=== PATIENT | female | born 1935 | race Caucasian/White ===

== ENCOUNTER 2017-10-22 14:03 | Emergency (ER) | payer MEDICARE, OTHER ==
[~2017-10-22] VITALS: Ht 157.5 cm; Wt 73.5 kg
[~2017-10-22 14:03] MED LIST: ALBU90OI61 INH; ASPI81CH; ASPI81CH PO; CALCIUM PO; CITRACAL; DILT120; DILT120 PO; ESCI10; ESCI10 PO; FISH1000; FISH1000 PO; FURO20 PO; GEMF600; GEMF600 PO; IRON PO; LEVSOD100; LEVSOD100 PO; LOSA50 PO; MELA3 PO; MULVITMIND PO; NAPR220; Norco 5-325 Ta1 EACH PO; OMEP20ER; POTA10T PO; Prednisone20 MG PO; VENLAFAXINE HC150 MG PO; VITAMIN D PO
[2017-10-22 16:43] LABS: BASOPHILS PERCENT AUTO 0 % (0-2); EOSINOPHILS PERCENT AUTO 0 % (0-6); Hematocrit 41.9 % (33.0-51.0); Hemoglobin 13.8 g/dL (11.5-16.0); IMMATURE GRAN ABSOLUTE AUTO 0.03 K/mm3 (0.00-0.10); IMMATURE GRAN PERCENT AUTO 0 % (0-1); LYMPHOCYTES ABSOLUTE AUTO 1.38 K/mm3 (0.84-5.20); LYMPHOCYTES PERCENT AUTO 11 % (21-46); MONOCYTES ABSOLUTE AUTO 0.82 K/mm3 (0.16-1.47); MONOCYTES PERCENT AUTO 6 % (4-13); Mean Corpuscular HGB 27.1 pg (26.0-34.0); Mean Corpuscular HGB Conc 32.9 g/dL (31.5-36.5); Mean Corpuscular Volume 82 fL (80-100); Mean Platelet Volume 10.6 fL (9.1-12.4); NEUTROPHILS ABSOLUTE AUTO 10.88 K/mm3 (1.96-9.15); NEUTROPHILS PERCENT AUTO 83 % (41-73); Platelet Count 302 K/mm3 (150-400); RDW Coefficient Variation 14.9 % (11.7-14.2); RDW Standard Deviation 45.3 fL (35.1-46.3); Red Blood Cell Count 5.09 M/mm3 (3.80-5.20); White Blood Cell Count 13.11 K/mm3 (4.00-11.30)
[2017-10-22 16:44] LABS: Albumin, Blood 3.6 g/dL (3.4-5.0); Bilirubin, Total 0.9 mg/dL (0.1-1.0); Calcium, Blood 9.4 mg/dL (8.5-10.1); Creatinine, Blood 1.22 mg/dL (0.40-1.00); Globulin, Blood 3.6 g/dL (2.2-4.0); Potassium, Blood 3.6 mmol/L (3.5-5.5); Total Protein, Blood 7.2 g/dL (6.4-8.2)
[2018-03-29] MEDS ORDERED: Norco 5-325 Ta1 EACH PO (00:07)
== END 2017-10-22 16:57 | disposition home or self-care (01) ==
LOC: ER 14:03
PROVIDERS: Psychiatry & Neurology Psychiatry
DX: S90.31XA Contusion of right foot, initial encounter (principal); I10 Essential (primary) hypertension; Z88.2 Allergy status to sulfonamides; Z88.8 Allergy status to other drugs, medicaments and biological substances; Z91.09 Other allergy status, other than to drugs and biological substances; Z79.82 Long term (current) use of aspirin; Z86.73 Personal history of transient ischemic attack (TIA), and cerebral infarction without residual deficits; Z79.899 Other long term (current) drug therapy; Z90.710 Acquired absence of both cervix and uterus; X58.XXXA Exposure to other specified factors, initial encounter
CPT/HCPCS: 36415; 73610; 80053; 85025; 93971; 99284

== ENCOUNTER 2019-10-22 07:34 | Day surgery (SDC) | payer MEDICARE, OTHER ==
[~2019-10-22] VITALS: Ht 160 cm; Wt 165.6 kg
--- NOTE | 2019-10-22 09:17 | NUR ---
10/22/19 0917 Richelle Melton O2 UP TO 10L/MIN VIA POM MASK FOR DESAT DURING UPPER ENDOSCOPY.
== END 2019-10-22 10:57 | disposition home or self-care (01) ==
LOC: ORSCSDS 07:34
PROVIDERS: Internal Medicine Gastroenterology
PROC: 0DBH8ZX Excision of Cecum, Via Natural or Artificial Opening Endoscopic, Diagnostic (ICD-10-PCS; principal; 2019-10-22 09:00)
PROC: 0DB58ZX Excision of Esophagus, Via Natural or Artificial Opening Endoscopic, Diagnostic (ICD-10-PCS; principal; 2019-10-22 09:00)
PROC: 0DBL8ZX Excision of Transverse Colon, Via Natural or Artificial Opening Endoscopic, Diagnostic (ICD-10-PCS; principal; 2019-10-22 09:00)
PROC: 0DBK8ZX Excision of Ascending Colon, Via Natural or Artificial Opening Endoscopic, Diagnostic (ICD-10-PCS; principal; 2019-10-22 09:00)
PROC: 0D757ZZ Dilation of Esophagus, Via Natural or Artificial Opening (ICD-10-PCS; principal; 2019-10-22 09:00)
DX: R19.4 Change in bowel habit (principal); R13.10 Dysphagia, unspecified; Z86.010 Personal history of colon polyps; K21.9 Gastro-esophageal reflux disease without esophagitis; K31.7 Polyp of stomach and duodenum; D12.0 Benign neoplasm of cecum; D12.2 Benign neoplasm of ascending colon; D12.3 Benign neoplasm of transverse colon; K22.2 Esophageal obstruction; K44.9 Diaphragmatic hernia without obstruction or gangrene; K57.30 Diverticulosis of large intestine without perforation or abscess without bleeding; K64.8 Other hemorrhoids; K64.4 Residual hemorrhoidal skin tags; I10 Essential (primary) hypertension; E03.9 Hypothyroidism, unspecified; J45.909 Unspecified asthma, uncomplicated; Z86.73 Personal history of transient ischemic attack (TIA), and cerebral infarction without residual deficits; Z79.899 Other long term (current) drug therapy
CPT/HCPCS: 88305; 88342; C1726; J2405; J2704; J7120

== ENCOUNTER 2021-03-15 21:22 | Emergency (ER) | payer MEDICARE, OTHER ==
[~2021-03-15] VITALS: Ht 157.5 cm; Wt 68.0 kg
[2021-03-16 00:15] LABS: BASOPHILS ABSOLUTE AUTO 0.02 K/mm3 (0.00-0.23); BASOPHILS PERCENT AUTO 0 % (0-2); EOSINOPHILS PERCENT AUTO 0 % (0-6); Hematocrit 46.5 % (33.0-51.0); Hemoglobin 15.3 g/dL (11.5-16.0); IMMATURE GRAN ABSOLUTE AUTO 0.08 K/mm3 (0.00-0.10); IMMATURE GRAN PERCENT AUTO 1 % (0-1); LYMPHOCYTES ABSOLUTE AUTO 1.57 K/mm3 (0.84-5.20); LYMPHOCYTES PERCENT AUTO 11 % (21-46); MONOCYTES ABSOLUTE AUTO 0.95 K/mm3 (0.16-1.47); MONOCYTES PERCENT AUTO 6 % (4-13); Mean Corpuscular HGB Conc 32.9 g/dL (31.5-36.5); Mean Corpuscular Volume 85 fL (80-100); Mean Platelet Volume 10.6 fL (9.1-12.4); NEUTROPHILS PERCENT AUTO 83 % (41-73); Platelet Count 334 K/mm3 (150-400); RDW Coefficient Variation 13.7 % (11.7-14.2); RDW Standard Deviation 42.7 fL (35.1-46.3); Red Blood Cell Count 5.46 M/mm3 (3.80-5.20); White Blood Cell Count 15.02 K/mm3 (4.00-11.30)
[2021-03-16 00:36] LABS: Albumin, Blood 3.8 g/dL (3.4-5.0); Bilirubin, Total 0.4 mg/dL (0.1-1.0); Bun/Creatinine Ratio 30.2 (12.0-20.0); Calcium, Blood 9.6 mg/dL (8.5-10.1); Creatinine, Blood 1.06 mg/dL (0.40-1.00); Globulin, Blood 3.8 g/dL (2.2-4.0); Potassium, Blood 4.4 mmol/L (3.5-5.5); Total Protein, Blood 7.6 g/dL (6.4-8.2)
[2021-03-16] MEDS ORDERED: IBUP600 PO (02:20)
[2021-03-16] MEDS ORDERED: LIDO700A20 TOP (02:20)
[2021-03-16] MEDS ORDERED: ACETAMINOPHEN500 MG PO (02:20)
== END 2021-03-16 06:00 | disposition home or self-care (01) ==
LOC: ER 21:22
PROVIDERS: Emergency Medicine
DX: S22.32XA Fracture of one rib, left side, initial encounter for closed fracture (principal); I10 Essential (primary) hypertension; Z88.2 Allergy status to sulfonamides; Z91.09 Other allergy status, other than to drugs and biological substances; Z88.8 Allergy status to other drugs, medicaments and biological substances; Z79.899 Other long term (current) drug therapy; Z86.73 Personal history of transient ischemic attack (TIA), and cerebral infarction without residual deficits; W01.198A Fall on same level from slipping, tripping and stumbling with subsequent striking against other object, initial encounter
CPT/HCPCS: 36415; 71101; 74177; 80053; 83690; 85025; 96374; 99284-25; J1200; J7512; Q9967

== ENCOUNTER 2021-05-17 16:08 | Observation (INO) | payer MEDICARE, OTHER ==
[~2021-05-17] VITALS: Ht 167.6 cm; Wt 67.8 kg
[~2021-05-17 16:08] MED LIST changes: +ACETAMINOPHEN500 MG PO; +IBUP600 PO; +LIDO700A20 TOP
[2021-05-17 17:02] LABS: BASOPHILS ABSOLUTE AUTO 0.03 K/mm3 (0.00-0.23); BASOPHILS PERCENT AUTO 0 % (0-2); EOSINOPHILS ABSOLUTE AUTO 0.01 K/mm3 (0.00-0.68); EOSINOPHILS PERCENT AUTO 0 % (0-6); Hematocrit 42.5 % (33.0-51.0); Hemoglobin 14.4 g/dL (11.5-16.0); IMMATURE GRAN ABSOLUTE AUTO 0.12 K/mm3 (0.00-0.10); IMMATURE GRAN PERCENT AUTO 1 % (0-1); LYMPHOCYTES ABSOLUTE AUTO 1.66 K/mm3 (0.84-5.20); LYMPHOCYTES PERCENT AUTO 10 % (21-46); MONOCYTES ABSOLUTE AUTO 1.55 K/mm3 (0.16-1.47); MONOCYTES PERCENT AUTO 9 % (4-13); Mean Corpuscular HGB 28.3 pg (26.0-34.0); Mean Corpuscular HGB Conc 33.9 g/dL (31.5-36.5); Mean Corpuscular Volume 84 fL (80-100); NEUTROPHILS ABSOLUTE AUTO 13.82 K/mm3 (1.96-9.15); NEUTROPHILS PERCENT AUTO 80 % (41-73); Platelet Count 378 K/mm3 (150-400); RDW Coefficient Variation 14.4 % (11.7-14.2); RDW Standard Deviation 43.8 fL (35.1-46.3); Red Blood Cell Count 5.09 M/mm3 (3.80-5.20); White Blood Cell Count 17.19 K/mm3 (4.00-11.30)
[2021-05-17] MEDS ORDERED: DILT30 PO (17:12)
[2021-05-17] MEDS ORDERED: VENL150ER PO (17:12)
[2021-05-17] MEDS ORDERED: FURO20 PO (17:12)
[2021-05-17] MEDS ORDERED: LEVSOD100 PO (17:13)
[2021-05-17] MEDS ORDERED: LOSA50 PO (17:14)
[2021-05-17 17:18] LABS: International Normalized Ratio 0.97; Prothrombin Time Results 10.5 Sec (9.7-11.5)
[2021-05-17 17:25] LABS: Albumin, Blood 3.8 g/dL (3.4-5.0); Bilirubin, Total 0.8 mg/dL (0.1-1.0); Bun/Creatinine Ratio 23.2 (12.0-20.0); Calcium, Blood 9.4 mg/dL (8.5-10.1); Creatinine, Blood 0.99 mg/dL (0.40-1.00); Globulin, Blood 3.8 g/dL (2.2-4.0); Potassium, Blood 4.2 mmol/L (3.5-5.5); Total Protein, Blood 7.6 g/dL (6.4-8.2)
[2021-05-18] MEDS ORDERED: ASPIR 8181 M1 PO (00:47)
[2021-05-18] MEDS ORDERED: FURO20 PO (00:48)
[2021-05-18] MEDS ORDERED: KLOR-CON 1010 ME1 PO (00:49)
[2021-05-18] MEDS ORDERED: ALBU90OI INH (00:50)
--- NOTE | 2021-05-18 01:00 | NUR ---
PT ADMITTED TO ICU 4 PER XIMENA FROM ER. NICARDIPINE 5MG/HR, SEE FLOWSHEET. PT IS ALERT & ORIENTED, MAEW, DENIES DISCOMFORT AND ABLE TO PROVIDE HISTORY. PT IS ON RA. UP TO BSC TO VOID W ASSIST. PT UNDERSTANDS TO CALL FOR ASSIST, NOT TO GET OOB. PT STATES THAT FOR THE LAST COUPLE MONTHS SHE HAS NOTICED THAT SHE HAS MOMENTS WHERE SHE FORGETS WHAT SHE WAS INTENDING TO DO, AND THIS IS NOT LIKE HER. PT STATES THAT SHE USES A TRIPOD CANE TO AMBULATE AT HOME.
[2021-05-18 03:40] LABS: BASOPHILS ABSOLUTE AUTO 0.02 K/mm3 (0.00-0.23); BASOPHILS PERCENT AUTO 0 % (0-2); EOSINOPHILS PERCENT AUTO 0 % (0-6); Hemoglobin 14.2 g/dL (11.5-16.0); IMMATURE GRAN ABSOLUTE AUTO 0.12 K/mm3 (0.00-0.10); IMMATURE GRAN PERCENT AUTO 1 % (0-1); LYMPHOCYTES ABSOLUTE AUTO 0.96 K/mm3 (0.84-5.20); LYMPHOCYTES PERCENT AUTO 6 % (21-46); MONOCYTES ABSOLUTE AUTO 0.36 K/mm3 (0.16-1.47); MONOCYTES PERCENT AUTO 2 % (4-13); Mean Corpuscular HGB 28.4 pg (26.0-34.0); Mean Corpuscular HGB Conc 33.8 g/dL (31.5-36.5); Mean Corpuscular Volume 84 fL (80-100); Mean Platelet Volume 10.7 fL (9.1-12.4); NEUTROPHILS PERCENT AUTO 91 % (41-73); Platelet Count 328 K/mm3 (150-400); RDW Coefficient Variation 14.3 % (11.7-14.2); RDW Standard Deviation 43.6 fL (35.1-46.3); White Blood Cell Count 15.76 K/mm3 (4.00-11.30)
[2021-05-18 03:59] LABS: Alanine Aminotransfer (ALT/SGP 22 U/L (12-78); Albumin, Blood 3.2 g/dL (3.4-5.0); Alk Phos 73 U/L (50-136); Anion Gap 7 mmol/L (6-16); Aspartate Aminotrans (AST/SGOT 22 U/L (12-37); Blood Urea Nitrogen 20 mg/dL (8-24); Bun/Creatinine Ratio 24.1 (12.0-20.0); CO2, Blood 24 mmol/L (21-32); Calcium, Blood 8.6 mg/dL (8.5-10.1); Chloride, Blood 104 mmol/L (98-108); Creatinine, Blood 0.83 mg/dL (0.40-1.00); Globulin, Blood 3.2 g/dL (2.2-4.0); Glomerular Filtration Rate >60 (60-); Glucose, Blood 183 mg/dL (70-99); Potassium, Blood 4.2 mmol/L (3.5-5.5); Sodium, Blood 135 mmol/L (136-145); Total Protein, Blood 6.4 g/dL (6.4-8.2)
--- NOTE | 2021-05-18 06:00 | NUR ---
PT STATES SHE SLEPT WELL. NICARDIPINE HAS BEEN OFF SINCE 114. VSS, NO CHANGE IN NEURO STATUS, CONT ON RA. CONT NSR.
--- NOTE | 2021-05-18 12:39 | NUR ---
REASSESSMENT PT HAS BEEN UP IN THE CHAIR THROUGHOUT THE MORNING. HER RA IS A LITTLE WEAKER THAN THE L, OTHERWISE NO DEFICITS NOTED. SR. BP REMAINS HIGH, SBP ANYWHERE FROM 130-180. PT WENT TO CT VIA WC WITH RN AND BACK AND TOELRATED IT WELL. PT ATE BREAKFAST WITHOUT ANY PROBLEMS, BUT WHILE SHE WAS EATING LUNCH SHE ALL OF A SUDDEN RETCHED AND VOMITED UP WHAT SHE ATE FOR BREAKFAST. PT DENIES ANY NAUSEA ASSOCIATED WITH IT. STATES IT "CAME OUT OF THE BLUE." ASSISTED PT WITH GETTING CLEANED UP AND SHE IS RESTING NOW. NO OTHER CONCERNS AT THIS TIME. CONTINUING TO MONITOR.
--- NOTE | 2021-05-18 13:35 | NUR ---
DR. MORRIS NOTIFIED OF PT'S CT RESULTS BEING BACK AND THAT PRN HYDRALAZINE WAS GIVEN FOR SBP 170S. HE STATED HE WILL TAKE A LOOK AT HER MEDS.
--- NOTE | 2021-05-18 17:00 | NUR ---
SHIFT SUMMARY PT'S SBP HAS RANGED FROMT HE 130-170S TODAY. PRN HYDRALAZINE GIVEN ONCE AND DR. MORRIS INCREASED DILTIAZEM DOSE. PT IS ALERT AND ORIENTED, BUT HAS BRIEF MOMENTS OF CONFUSION WHERE SHE FORGETS WHICH CITY SHE IS IN. THIS MORNING SHE SAYS SHE THOUGHT SHE WAS IN [place] AND THEN THIS EVENING SHE WAS TELLING HER DAUGHTER THAT SHE WAS IN [place]. WHEN CORRECTED AND TOLD SHE IS IN [place] PT JUST STATES "OH, I AM CONFUSED!" OTHER THAN THOSE 2 MOMENTS TODAY PT APPEARS ORIENTED. NO MORE EPISODES OF EMESIS SINCE LUNCH TIME. PT HAD A BM THIS AFTERNOON. PT'S IN THE ROOM VISITING WITH HER. PT TRANSFERRING TO RM [id number]. REPORT GIVEN TO BA CUELLAR.
--- NOTE | 2021-05-18 17:29 | NUR ---
SHIFT SUMMARY: ASSUMED CARE OF PATIENT UPON HER ARRIVAL FROM ICU AT 1715. AMBULATED TO BR WITH FWW, GAIT BELT, AND 1 PERSON ASSIST. GAIT IS UNSTEADY, BLE ARE WEAK. A&O X 3, PLEASANT AND COOPERATIVE. DENIES PAIN AT THIS TIME. IS HOPING TO D/C HOME TOMORROW.
--- NOTE | 2021-05-19 03:44 | NUR ---
SHIFT SUMMARY PATIENT HAD NO ACUTE CHANGES OBSERVED. AXOX 3 WITH CONFUSION AT TIMES. N/V AT START OF SHIFT AND RESOLVED QUICKLY. PATIENT REPORTS HAPPENED AFTER SHE HAD SOME FOOD AND HX OF N/V AFTER EATING AT TIMES. ONE ASSIST TO BR WITH UNSTEADY GAIT. PIV REMAINS INTACT. VSS/AFEBRILE. DENIES CHEST PAIN, SOB, AND N/V. TAKES MEDICATION WHOLE WITH WATER. COOPERATIVE WITH CARE. CALL LIGHT IN REACH. BED IN LOWEST POSITION. WILL CONTINUE TO MONITOR UNTIL DAY SHIFT NURSE ASSUMES CARE.
[2021-05-19] MEDS ORDERED: HYDCHL25 PO (12:21)
[2021-05-19] MEDS ORDERED: CITA20 PO (12:21)
--- NOTE | 2021-05-19 12:57 | NUR ---
PATIENT DISCHARGED TODAY AT 12:57. FAMILY CAME IN TO PICK HER UP. CORRESPONDENCE TRANSCRIBER TOOK THE PATIENT OUT TO THE CAR BY WHEELCHAIR.
== END 2021-05-19 12:54 | disposition home health service (06) ==
LOC: ER 16:08 → PCU 16:09 → ICUW 16:09 → ICUE 16:09 → ICUW 20:12 → ICUE 21:50 → MEDS 05-18 17:14 → ENPENDDIS 05-19 11:38 → MEDS 05-19 12:54
PROVIDERS: Emergency Medicine; ADMIT Internal Medicine
DX: S06.6X9A Traumatic subarachnoid hemorrhage with loss of consciousness of unspecified duration, initial encounter (principal); S00.03XA Contusion of scalp, initial encounter; I16.0 Hypertensive urgency; J45.909 Unspecified asthma, uncomplicated; E03.9 Hypothyroidism, unspecified; G93.40 Encephalopathy, unspecified; R27.0 Ataxia, unspecified; I67.89 Other cerebrovascular disease; Z88.5 Allergy status to narcotic agent; Z88.2 Allergy status to sulfonamides; Z88.8 Allergy status to other drugs, medicaments and biological substances; Z88.6 Allergy status to analgesic agent; Z91.041 Radiographic dye allergy status; Z86.73 Personal history of transient ischemic attack (TIA), and cerebral infarction without residual deficits; W19.XXXA Unspecified fall, initial encounter; Z66 Do not resuscitate; Z51.5 Encounter for palliative care
CPT/HCPCS: 36415; 70450; 70496; 80053; 85025; 85610; 85730; 96365; 96366; 96367; 96375; 96376; 99285-25; A9270; G0378; J0360; J2920; J7030; J7050; Q9967

== ENCOUNTER 2021-05-21 14:06 | Inpatient (IN) | payer MEDICARE, OTHER ==
[~2021-05-21] VITALS: Ht 167.6 cm; Wt 71.4 kg
[~2021-05-21 14:06] MED LIST changes: +ALBU90OI INH; +ASPIR 8181 M1 PO; +CITA20 PO; +DILT30 PO; +HYDCHL25 PO; +KLOR-CON 1010 ME1 PO; +VENL150ER PO
[2021-05-21 14:43] LABS: BASOPHILS ABSOLUTE AUTO 0.04 K/mm3 (0.00-0.23); BASOPHILS PERCENT AUTO 0 % (0-2); EOSINOPHILS ABSOLUTE AUTO 0.03 K/mm3 (0.00-0.68); EOSINOPHILS PERCENT AUTO 0 % (0-6); Hematocrit 46.9 % (33.0-51.0); Hemoglobin 15.8 g/dL (11.5-16.0); IMMATURE GRAN ABSOLUTE AUTO 0.18 K/mm3 (0.00-0.10); IMMATURE GRAN PERCENT AUTO 1 % (0-1); LYMPHOCYTES ABSOLUTE AUTO 1.88 K/mm3 (0.84-5.20); LYMPHOCYTES PERCENT AUTO 9 % (21-46); MONOCYTES ABSOLUTE AUTO 1.73 K/mm3 (0.16-1.47); MONOCYTES PERCENT AUTO 9 % (4-13); Mean Corpuscular HGB 28.1 pg (26.0-34.0); Mean Corpuscular HGB Conc 33.7 g/dL (31.5-36.5); Mean Corpuscular Volume 83 fL (80-100); Mean Platelet Volume 10.8 fL (9.1-12.4); NEUTROPHILS ABSOLUTE AUTO 16.53 K/mm3 (1.96-9.15); NEUTROPHILS PERCENT AUTO 81 % (41-73); Platelet Count 491 K/mm3 (150-400); RDW Coefficient Variation 14.3 % (11.7-14.2); RDW Standard Deviation 43.3 fL (35.1-46.3); Red Blood Cell Count 5.63 M/mm3 (3.80-5.20); White Blood Cell Count 20.39 K/mm3 (4.00-11.30)
[2021-05-21 15:13] LABS: Alanine Aminotransfer (ALT/SGP 27 U/L (12-78); Albumin, Blood 3.9 g/dL (3.4-5.0); Alk Phos 126 U/L (50-136); Anion Gap 9 mmol/L (6-16); Aspartate Aminotrans (AST/SGOT 19 U/L (12-37); Bilirubin, Total 0.9 mg/dL (0.1-1.0); Blood Urea Nitrogen 44 mg/dL (8-24); Bun/Creatinine Ratio 32.1 (12.0-20.0); CO2, Blood 25 mmol/L (21-32); Calcium, Blood 9.4 mg/dL (8.5-10.1); Chloride, Blood 98 mmol/L (98-108); Creatinine, Blood 1.37 mg/dL (0.40-1.00); Glomerular Filtration Rate 37 (60-); Glucose, Blood 156 mg/dL (70-99); Potassium, Blood 3.5 mmol/L (3.5-5.5); Sodium, Blood 132 mmol/L (136-145); Total Protein, Blood 7.9 g/dL (6.4-8.2)
[2021-05-21 17:12] LABS: Prothrombin Time Results 10.8 Sec (9.7-11.5)
[2021-05-21 21:24] LABS: CHOL/HDL RATIO 3.2; Cholesterol 217 mg/dL (50-200); HDL Cholesterol 67 mg/dL (>39); LDL/HDL RATIO 1.9; Low Density Lipoprotein Chol 125 mg/dL (0-110); Triglycerides 127 mg/dL (30-160); Very Low Density Lipoprot Chol 25 mg/dL (6-32)
[2021-05-22 04:45] LABS: BASOPHILS ABSOLUTE AUTO 0.02 K/mm3 (0.00-0.23); BASOPHILS PERCENT AUTO 0 % (0-2); EOSINOPHILS PERCENT AUTO 0 % (0-6); Hematocrit 44.4 % (33.0-51.0); Hemoglobin 14.7 g/dL (11.5-16.0); IMMATURE GRAN ABSOLUTE AUTO 0.08 K/mm3 (0.00-0.10); IMMATURE GRAN PERCENT AUTO 1 % (0-1); LYMPHOCYTES ABSOLUTE AUTO 0.81 K/mm3 (0.84-5.20); LYMPHOCYTES PERCENT AUTO 7 % (21-46); MONOCYTES ABSOLUTE AUTO 0.24 K/mm3 (0.16-1.47); MONOCYTES PERCENT AUTO 2 % (4-13); Mean Corpuscular HGB 28.2 pg (26.0-34.0); Mean Corpuscular HGB Conc 33.1 g/dL (31.5-36.5); Mean Corpuscular Volume 85 fL (80-100); NEUTROPHILS ABSOLUTE AUTO 11.32 K/mm3 (1.96-9.15); NEUTROPHILS PERCENT AUTO 91 % (41-73); Platelet Count 340 K/mm3 (150-400); RDW Coefficient Variation 13.7 % (11.7-14.2); RDW Standard Deviation 42.7 fL (35.1-46.3); Red Blood Cell Count 5.21 M/mm3 (3.80-5.20); White Blood Cell Count 12.47 K/mm3 (4.00-11.30)
--- NOTE | 2021-05-22 05:01 | NUR ---
SHIFT SUMMARY PT NEW ED ADMIT THIS EVENING. PT REPORTED WEAKNESS TO LLE. STATED THAT HE LEGS WOULD JUST "GIVE OUT ON HER" IF SHE WERE TO TRY TO STAND ON THEM. PT WAS ABLE TO GET UP TO BSC WITH 1 ASSIST. HOWEVER PER DIRECTOR OF RESEARCH PT WAS STILL SOMEWHAT UNSTEADY. NEURO CHECKS NEGATIVE OTHERWISE. TELEMETRY ON. SR IN THE 70'S PER THICKENER OPERATOR. PT SLEPT MUCH OF THE NIGHT AFTER ADMISSION. HAD AN UNEVENTFUL NIGHT. VITAL SIGNS STABLE. WILL CONTINUE TO MONITOR.
[2021-05-22 05:02] LABS: Bun/Creatinine Ratio 34.9 (12.0-20.0); Calcium, Blood 8.7 mg/dL (8.5-10.1); Creatinine, Blood 1.09 mg/dL (0.40-1.00); Potassium, Blood 3.8 mmol/L (3.5-5.5)
--- NOTE | 2021-05-22 18:10 | NUR ---
NO NEURO DEF NOTED THIS SHIFT. PT HAS EQUAL BI LAT ORACLE DATABASE ADMINISTRATOR. ABLE TO EXPRESS ANY NEEDS. SBA TO BSC. PT IS ALERT AND ORIENTED. NO FACIAL DROOP NOTED. NO ACUTE CHANGES. CALL LIGHT WITHIN REACH, BED IN LOW POSITION, WCTM
--- NOTE | 2021-05-23 03:54 | NUR ---
SUMMARY NO ISSUES NOTED. PT HAS NO NOTED DEFICITS OR FACIAL DROOP. PT SLEPT OFF AND ON T/O SHIFT. PT DENIES CX PAIN OR SOB. CALL LIGHT IN REACH AND BED ALARM ON.
[2021-05-23 04:43] LABS: BASOPHILS ABSOLUTE AUTO 0.04 K/mm3 (0.00-0.23); BASOPHILS PERCENT AUTO 0 % (0-2); EOSINOPHILS PERCENT AUTO 0 % (0-6); Hematocrit 45.4 % (33.0-51.0); Hemoglobin 15.1 g/dL (11.5-16.0); IMMATURE GRAN ABSOLUTE AUTO 0.23 K/mm3 (0.00-0.10); IMMATURE GRAN PERCENT AUTO 1 % (0-1); LYMPHOCYTES ABSOLUTE AUTO 1.32 K/mm3 (0.84-5.20); LYMPHOCYTES PERCENT AUTO 5 % (21-46); MONOCYTES ABSOLUTE AUTO 1.55 K/mm3 (0.16-1.47); MONOCYTES PERCENT AUTO 6 % (4-13); Mean Corpuscular HGB 28.3 pg (26.0-34.0); Mean Corpuscular HGB Conc 33.3 g/dL (31.5-36.5); Mean Corpuscular Volume 85 fL (80-100); Mean Platelet Volume 10.6 fL (9.1-12.4); NEUTROPHILS ABSOLUTE AUTO 21.42 K/mm3 (1.96-9.15); NEUTROPHILS PERCENT AUTO 87 % (41-73); Platelet Count 403 K/mm3 (150-400); RDW Coefficient Variation 13.8 % (11.7-14.2); RDW Standard Deviation 42.5 fL (35.1-46.3); Red Blood Cell Count 5.34 M/mm3 (3.80-5.20); White Blood Cell Count 24.56 K/mm3 (4.00-11.30)
[2021-05-23 05:02] LABS: Bun/Creatinine Ratio 39.8 (12.0-20.0); Calcium, Blood 8.9 mg/dL (8.5-10.1); Creatinine, Blood 1.18 mg/dL (0.40-1.00); Potassium, Blood 3.8 mmol/L (3.5-5.5)
[2021-05-23 09:45] LABS: Source, Urine Clean Catch
[2021-05-23 09:50] LABS: Bilirubin, Urine Neg (Neg); Blood, Urine Neg (Neg); Glucose Qualitative, Urine Neg (Neg); Ketones, Urine Neg (Neg); Leukocyte Esterase, Urine Neg (Neg); Nitrite, Urine Neg (Neg); Protein, Urine 1+ (Neg); Specific Gravity, Urine 1.015 (1.003-1.022); Urobilinogen, Urine NORM (Normal)
[2021-05-23 09:51] LABS: Appearance, Urine Clear (Clear); Color, Urine Yellow (P-Yellow)
[2021-05-23 14:52] LABS: SARS-Cov-2 (COVID-19) PCR, MMC NEGATIVE (NEGATIVE)
[2021-05-23] MEDS ORDERED: ACET325 PO (15:11)
[2021-05-23] MEDS ORDERED: FURO20 PO (15:27)
[2021-05-23] MEDS ORDERED: VENL150ER PO (15:27)
--- NOTE | 2021-05-23 16:06 | NUR ---
1600 PT TO DISCHARGE TO R . THIS NURSE GAVE REPORT TO ANITA COSME. PT HAD IV REMOVED, NO SS OF INFECTION NOTED. PT TO BE TAKEN DOWN BY WC.
== END 2021-05-23 18:27 | DRG 65 ==
LOC: ER 14:06 → MEDS 14:07
PROVIDERS: Internal Medicine; Student in an Organized Health Care Education/Training Program; ADMIT Family Medicine
DX: I63.89 Other cerebral infarction (principal); E87.1 Hypo-osmolality and hyponatremia; N17.9 Acute kidney failure, unspecified; G81.94 Hemiplegia, unspecified affecting left nondominant side; I67.848 Other cerebrovascular vasospasm and vasoconstriction; Z66 Do not resuscitate; Z86.73 Personal history of transient ischemic attack (TIA), and cerebral infarction without residual deficits; D72.829 Elevated white blood cell count, unspecified; Z90.710 Acquired absence of both cervix and uterus; E03.9 Hypothyroidism, unspecified; J45.909 Unspecified asthma, uncomplicated; Z98.890 Other specified postprocedural states; Z88.8 Allergy status to other drugs, medicaments and biological substances; Z88.2 Allergy status to sulfonamides; Z79.899 Other long term (current) drug therapy; N18.30 Chronic kidney disease, stage 3 unspecified; I12.9 Hypertensive chronic kidney disease with stage 1 through stage 4 chronic kidney disease, or unspecified chronic kidney disease; D47.3 Essential (hemorrhagic) thrombocythemia
CPT/HCPCS: 36415; 70450; 70496; 71045; 80048; 80053; 80061; 85025; 85610; 85730; 93005; 93010; 96374; 96375; 97110; 97112; 97162; 97166; 97530; 97535; 99285-25; A9270; G0378; J1200; J2930; Q9967; U0004

== ENCOUNTER 2021-07-20 17:01 | Emergency (ER) | payer MEDICARE, OTHER ==
[~2021-07-20] VITALS: Ht 157.5 cm; Wt 68.0 kg
[~2021-07-20 17:01] MED LIST changes: +ACET325 PO
== END 2021-07-20 18:15 | disposition home or self-care (01) ==
LOC: ER 17:01
DX: S50.02XA Contusion of left elbow, initial encounter (principal); I10 Essential (primary) hypertension; Z88.2 Allergy status to sulfonamides; Z88.8 Allergy status to other drugs, medicaments and biological substances; Z91.048 Other nonmedicinal substance allergy status; Z79.899 Other long term (current) drug therapy; Z86.73 Personal history of transient ischemic attack (TIA), and cerebral infarction without residual deficits; W19.XXXA Unspecified fall, initial encounter
CPT/HCPCS: 73080; 99283-25

== ENCOUNTER 2021-08-12 20:13 | Inpatient (IN) | payer MEDICARE, OTHER ==
[~2021-08-12] VITALS: Ht 157.5 cm; Wt 70.3 kg
[2021-08-12] MEDS ORDERED: VENL150ER PO (20:30)
[2021-08-12] MEDS ORDERED: Aspir 8181 MG PO (20:30)
[2021-08-12] MEDS ORDERED: 1/2 NS 250ml250 ML (20:31)
[2021-08-13 00:20] LABS: Influenza A, PCR NEGATIVE (NEGATIVE); Influenza B, PCR NEGATIVE (NEGATIVE); Resp Syncytial Virus, PCR NEGATIVE (NEGATIVE); SARS-Cov-2 (COVID-19) PCR, MMC NEGATIVE (NEGATIVE)
[2021-08-13 00:38] LABS: BASOPHILS ABSOLUTE AUTO 0.03 K/mm3 (0.00-0.23); BASOPHILS PERCENT AUTO 0 % (0-2); EOSINOPHILS ABSOLUTE AUTO 0.01 K/mm3 (0.00-0.68); EOSINOPHILS PERCENT AUTO 0 % (0-6); Hematocrit 38.9 % (33.0-51.0); IMMATURE GRAN PERCENT AUTO 1 % (0-1); LYMPHOCYTES ABSOLUTE AUTO 1.05 K/mm3 (0.84-5.20); LYMPHOCYTES PERCENT AUTO 7 % (21-46); MONOCYTES ABSOLUTE AUTO 1.07 K/mm3 (0.16-1.47); MONOCYTES PERCENT AUTO 7 % (4-13); Mean Corpuscular HGB 28.4 pg (26.0-34.0); Mean Corpuscular HGB Conc 33.4 g/dL (31.5-36.5); Mean Corpuscular Volume 85 fL (80-100); Mean Platelet Volume 10.9 fL (9.1-12.4); NEUTROPHILS ABSOLUTE AUTO 12.84 K/mm3 (1.96-9.15); NEUTROPHILS PERCENT AUTO 85 % (41-73); Platelet Count 342 K/mm3 (150-400); RDW Coefficient Variation 14.1 % (11.7-14.2); RDW Standard Deviation 43.8 fL (35.1-46.3); Red Blood Cell Count 4.57 M/mm3 (3.80-5.20)
[2021-08-13 00:57] LABS: Albumin, Blood 3.3 g/dL (3.4-5.0); Bilirubin, Total 0.6 mg/dL (0.1-1.0); Bun/Creatinine Ratio 27.6 (12.0-20.0); Calcium, Blood 8.7 mg/dL (8.5-10.1); Creatinine, Blood 0.98 mg/dL (0.40-1.00); Globulin, Blood 3.4 g/dL (2.2-4.0); Potassium, Blood 4.2 mmol/L (3.5-5.5); Total Protein, Blood 6.7 g/dL (6.4-8.2)
--- NOTE | 2021-08-13 06:05 | NUR ---
AAOX4. NO ACUTE DISTRESS NOTED. PATIENT ARRIVED AT THE FLOOR WITH PAIN 6/10. PAIN MEDS WAS GIVEN. LAIRD WAS INSERTED. BLOOD AND SURG PACAKGE WAS SIGHNED BY PATIENT. CALL LIGHT WITHIN REACH. BED AT THE LOWEST SIDE. NO NEEDS VERBALIZED AT THIS TIME
--- NOTE | 2021-08-13 12:22 | NUR ---
PT ARRIVED TO THE FLOOR AT APPROX 1145. A/OX4. VITALS TAKEN. COMPLAINTS OF PAIN WHEN BEING TRANSFERED BUT REPORTS DECREASED PAIN WHILE LAYING STILL. R ARM WRAPPED WITH CARO WRAP AND BRACE. VERY PALE SKIN TONE. 3L O2 SATING AT 95%.
--- NOTE | 2021-08-13 15:42 | NUR ---
POSSESSIONS SON LUIZ STATED THAT HE WAS TAKING ALL PTS JEWLERY AND HER PURSE HOME.
--- NOTE | 2021-08-13 18:05 | NUR ---
SHIFT SUMMARY A/OX4. VITALS STABLE. PAIN CONTROLLED PER EMAR. PT CURRENTLY IN SURGERY.
--- NOTE | 2021-08-14 06:23 | NUR ---
AFTER MIFNIGHT PATIENT GET CONFUSED AND PULLED HER IV OUT WELL HER L HIP WOUND DRESSING BUT SHE IS STILL ALERT ORIENTED X3. PT WAS REORIENTED , A NEW IV ACCESS WAS INSERTED AND NEW DRESSING WAS APPLIED. STILL ON LAIRD. NO ACUTE DISTRESS NOTED AT THIS TIME. CALL LIGHT WITHIN REACH. BED AT THE LOWEST POSITION AND BED IS LOCKED.
--- NOTE | 2021-08-14 17:59 | NUR ---
SHIFT SUMMARY PT POD #1 FOR L HIP REPAIR WITH GAMMA NAILING. [address] [facility] PT WAS CONFUSED THIS MORNING AND NEEDED FREQUENT REORIENTATION, BUT HER MENTATION HAS CLEARED SINCE. SHE IS CURRENTLY A/O X3. SHE WORKED WITH PHYSICAL THERAPY AND WAS ABLE TO GET UP TO THE CHAIR WITH A 1 ASSIST W/FWW/GB. LAIRD CATHETER REMOVED. VSS. WILL REPORT TO ONCOMING RN.
[2021-08-15 03:59] LABS: Hematocrit 30.9 % (33.0-51.0); Hemoglobin 10.3 g/dL (11.5-16.0); Mean Corpuscular HGB 28.5 pg (26.0-34.0); Mean Corpuscular HGB Conc 33.3 g/dL (31.5-36.5); Mean Corpuscular Volume 86 fL (80-100); Mean Platelet Volume 10.8 fL (9.1-12.4); Platelet Count 306 K/mm3 (150-400); RDW Standard Deviation 43.8 fL (35.1-46.3); Red Blood Cell Count 3.61 M/mm3 (3.80-5.20); White Blood Cell Count 13.25 K/mm3 (4.00-11.30)
[2021-08-15 04:18] LABS: Bun/Creatinine Ratio 27.7 (12.0-20.0); Calcium, Blood 8.7 mg/dL (8.5-10.1); Creatinine, Blood 1.59 mg/dL (0.40-1.00); Potassium, Blood 4.1 mmol/L (3.5-5.5)
--- NOTE | 2021-08-15 08:05 | NUR ---
SUMMARY PT AMBULATORY WITH WALKER,GAIT BELT AND SBA.HOWEVER,PT IS WEAK AND SHAKEY. APPEARS DECONDITIONED.
--- NOTE | 2021-08-15 16:03 | NUR ---
SHIFT SUMMARY PT IS POD#2 FROM L GAMMA NAILING. PAIN HAS BEEN MANAGED WITH TYLENOL, SHE REPORTS MINIMAL TO NO INCREASE IN PAIN WITH MOVEMENT. PT IS A 1 PERSON MODERATE ASSIST FOR AMBULATION AND TRANSFERS. PT IS TOLERATING PO, VOIDING WELL. CARE MANAGEMENT CONTACTED REGARDING DISCHARGE PLANNING. VSS. WILL MONITOR UNTIL REPORT TO NOC RN.
--- NOTE | 2021-08-16 04:45 | NUR ---
SHIFT SUMMARY: PT POD#3 FOR A CLOSED REDUCTION+GAMMA NAILING TO LEFT HIP. PT A&OX4 IN BEGINNING OF SHIFT BUT BECAME MORE FORGETFUL DURING NIGHT. PT INCONTINENT TWICE, OTHERWISE 1 ASSIST TO BATHROOM W/FWW+GB. DRESSING CHANGED ONCE THIS SHIFT PT PULLED IT OFF. INCISION SITE APPEARED WNL AND JULIET INTACT. PAIN BEING MANAGED WITH TYLENOL PER EMAR. PT ASSISTED IN THE SHOWER THIS MORNING. LINEN CHANGED. PT CURRENTLY RESTING IN BED. BED ALARM ON FOR SAFETY.
[2021-08-16 14:31] LABS: SARS-Cov-2 (COVID-19) PCR, MMC NEGATIVE (NEGATIVE)
--- NOTE | 2021-08-16 15:14 | NUR ---
PATIENT WILL BE TRANSPORTED TO [facility] TODAY. [facility] WILL BE COMING AROUND 1600. PATIENT AND FAMILY ARE AWARE AND AGREE. SHE HAS HER ITEMS IN THE ROOM GATHERED AND SHE IS DRESSED. SHE IS CURRENTLY SITTING UP IN A CHAIR WITH CALL LIGHT IN REACH. THIS NURSE GAVE REPORT TO ESPERANZA COSME AT [facility]. DRESSING ON THE LEFT HIP IS C/D/I. AWAITING FOR [facility] TO COME HEADLINE WRITER THE PATIENT TO TAKE TO [facility].
--- NOTE | 2021-08-16 16:08 | NUR ---
PATIENT WAS JUST PICKED UP BY TRANSPORT. ITEMS ARE GATHERED FROM THE ROOM. PATIENT IS HEADED TO [facility].
== END 2021-08-16 16:00 | DRG 480 ==
LOC: ER 20:13 → SURS 22:44
PROVIDERS: Internal Medicine; Orthopaedic Surgery; Physician Assistant; ADMIT Internal Medicine
PROC: 3E02340 Introduction of Influenza Vaccine into Muscle, Percutaneous Approach (ICD-10-PCS; 2021-08-13)
PROC: 0QS736Z Reposition Left Upper Femur with Intramedullary Internal Fixation Device, Percutaneous Approach (ICD-10-PCS; principal; 2021-08-13 17:45)
DX: S72.142A Displaced intertrochanteric fracture of left femur, initial encounter for closed fracture (principal); G92.8 Other toxic encephalopathy; Z20.822 Contact with and (suspected) exposure to COVID-19; I12.9 Hypertensive chronic kidney disease with stage 1 through stage 4 chronic kidney disease, or unspecified chronic kidney disease; N18.30 Chronic kidney disease, stage 3 unspecified; Z23 Encounter for immunization; R29.6 Repeated falls; R54 Age-related physical debility; W01.0XXA Fall on same level from slipping, tripping and stumbling without subsequent striking against object, initial encounter; Y92.009 Unspecified place in unspecified non-institutional (private) residence as the place of occurrence of the external cause; Z86.73 Personal history of transient ischemic attack (TIA), and cerebral infarction without residual deficits; Z88.2 Allergy status to sulfonamides; Z88.8 Allergy status to other drugs, medicaments and biological substances; Z88.5 Allergy status to narcotic agent; Z79.899 Other long term (current) drug therapy
CPT/HCPCS: 0241U; 36415; 51702; 73502; 80048; 80053; 85025; 85027; 90686; 97110; 97116; 97162; 97530; 99285-25; A9270; C1713; C1769; G0008; J0690; J1100; J1170; J1650; J1885; J2250; J2405; J2704; J3010; J7050; J7120; U0004

== ENCOUNTER 2021-12-01 11:32 | Day surgery (SDC) | payer MEDICARE, OTHER ==
[~2021-12-01] VITALS: Ht 160 cm; Wt 60.1 kg
[~2021-12-01 11:32] MED LIST changes: +1/2 NS 250ml250 ML; +Aspir 8181 MG PO
--- NOTE | 2021-12-01 14:49 | NUR ---
12/01/21 1449 VIRGIL MOTT PT RETURNED WALKER AT [facility]. END NOTE ORSC.RDS
== END 2021-12-01 14:33 | disposition home or self-care (01) ==
LOC: ORSCSDS 11:32
PROVIDERS: Internal Medicine Gastroenterology
PROC: 0DJD8ZZ Inspection of Lower Intestinal Tract, Via Natural or Artificial Opening Endoscopic (ICD-10-PCS; principal; 2021-12-01 12:45)
PROC: 0DJ08ZZ Inspection of Upper Intestinal Tract, Via Natural or Artificial Opening Endoscopic (ICD-10-PCS; principal; 2021-12-01 12:45)
DX: R19.4 Change in bowel habit (principal); R19.5 Other fecal abnormalities; Z86.010 Personal history of colon polyps; K57.30 Diverticulosis of large intestine without perforation or abscess without bleeding; Z87.19 Personal history of other diseases of the digestive system; K64.8 Other hemorrhoids; I35.0 Nonrheumatic aortic (valve) stenosis; G47.33 Obstructive sleep apnea (adult) (pediatric); J45.909 Unspecified asthma, uncomplicated; I10 Essential (primary) hypertension; Z86.73 Personal history of transient ischemic attack (TIA), and cerebral infarction without residual deficits; F03.90 Unspecified dementia, unspecified severity, without behavioral disturbance, psychotic disturbance, mood disturbance, and anxiety; F32.A Depression, unspecified; Z79.899 Other long term (current) drug therapy
CPT/HCPCS: J2001; J2405; J2704; J7120

== ENCOUNTER 2022-08-09 12:08 | Emergency (ER) | payer MEDICARE, OTHER ==
[~2022-08-09] VITALS: Ht 162.6 cm; Wt 58.0 kg
[2022-08-09 13:00] LABS: BASOPHILS ABSOLUTE AUTO 0.03 K/mm3 (0.00-0.23); BASOPHILS PERCENT AUTO 0 % (0-2); EOSINOPHILS ABSOLUTE AUTO 0.07 K/mm3 (0.00-0.68); EOSINOPHILS PERCENT AUTO 1 % (0-6); Hematocrit 43.2 % (33.0-51.0); Hemoglobin 14.1 g/dL (11.5-16.0); IMMATURE GRAN ABSOLUTE AUTO 0.04 K/mm3 (0.00-0.10); IMMATURE GRAN PERCENT AUTO 0 % (0-1); LYMPHOCYTES ABSOLUTE AUTO 1.72 K/mm3 (0.84-5.20); LYMPHOCYTES PERCENT AUTO 16 % (21-46); MONOCYTES ABSOLUTE AUTO 1.12 K/mm3 (0.16-1.47); MONOCYTES PERCENT AUTO 10 % (4-13); Mean Corpuscular HGB 27.7 pg (26.0-34.0); Mean Corpuscular HGB Conc 32.6 g/dL (31.5-36.5); Mean Corpuscular Volume 85 fL (80-100); Mean Platelet Volume 10.9 fL (9.1-12.4); NEUTROPHILS ABSOLUTE AUTO 8.05 K/mm3 (1.96-9.15); NEUTROPHILS PERCENT AUTO 73 % (41-73); Platelet Count 345 K/mm3 (150-400); RDW Coefficient Variation 14.1 % (11.7-14.2); RDW Standard Deviation 43.9 fL (35.1-46.3); Red Blood Cell Count 5.09 M/mm3 (3.80-5.20); White Blood Cell Count 11.03 K/mm3 (4.00-11.30)
[2022-08-09 13:22] LABS: Albumin, Blood 3.4 g/dL (3.4-5.0); Bilirubin, Total 1.2 mg/dL (0.1-1.0); Bun/Creatinine Ratio 25.5 (12.0-20.0); Calcium, Blood 9.1 mg/dL (8.5-10.1); Creatinine, Blood 1.41 mg/dL (0.40-1.00); Globulin, Blood 3.3 g/dL (2.2-4.0); Potassium, Blood 3.5 mmol/L (3.5-5.5); Total Protein, Blood 6.7 g/dL (6.4-8.2)
[2022-08-09] MEDS ORDERED: FAMO20 PO (15:00)
[2022-08-09] MEDS ORDERED: FAMO10 PO (15:00)
[2022-08-09 15:34] LABS: Source, Urine Fem Cath
[2022-08-09 15:46] LABS: Appearance, Urine Clear (Clear); Blood, Urine Neg (Neg); Color, Urine Yellow (P-Yellow); Glucose Qualitative, Urine Neg (Neg); Ketones, Urine Neg (Neg); Leukocyte Esterase, Urine 1+ (Neg); Nitrite, Urine Neg (Neg); Protein, Urine 1+ (Neg); Specific Gravity, Urine 1.025 (1.003-1.022); Urobilinogen, Urine NORM (Normal)
[2022-08-09] MEDS ORDERED: PREPARATION H1 EAC3 PR (16:13)
[2022-08-09 16:14] LABS: Bilirubin, Urine 1+ (Neg)
[2022-08-09 16:15] LABS: Bacteria Many /hpf; Red Blood Cells, Urine 0-2 /hpf (0-2); Squamous Epithelial Cells Mod /hpf (Few); Transitional Epithelial Cells Few /hpf (0-Rare)
[2022-08-09] MEDS ORDERED: CEPH500 PO (16:24)
== END 2022-08-09 17:03 | disposition home or self-care (01) ==
LOC: ER 12:08
PROVIDERS: Physician Assistant
DX: K64.8 Other hemorrhoids (principal); N39.0 Urinary tract infection, site not specified; I10 Essential (primary) hypertension; Z88.2 Allergy status to sulfonamides; Z91.048 Other nonmedicinal substance allergy status; Z88.8 Allergy status to other drugs, medicaments and biological substances; Z88.1 Allergy status to other antibiotic agents; Z79.899 Other long term (current) drug therapy; Z79.82 Long term (current) use of aspirin
CPT/HCPCS: 36415; 80053; 81001; 85025; 87086; P9612

== ENCOUNTER 2022-09-27 19:27 | Emergency (ER) | payer MEDICARE, OTHER ==
[~2022-09-27] VITALS: Ht 157.5 cm; Wt 54.4 kg
[~2022-09-27 19:27] MED LIST changes: +CEPH500 PO; +FAMO10 PO; +FAMO20 PO; +PREPARATION H1 EAC3 PR
[2022-09-28] MEDS ORDERED: Percocet 5-3251 EACH PO (02:07)
[2022-09-28] MEDS ORDERED: ONDA4 PO (02:10)
== END 2022-09-28 02:41 | disposition home or self-care (01) ==
LOC: ER 19:27
DX: S01.112A Laceration without foreign body of left eyelid and periocular area, initial encounter (principal); M25.552 Pain in left hip; M25.562 Pain in left knee; I10 Essential (primary) hypertension; Z86.73 Personal history of transient ischemic attack (TIA), and cerebral infarction without residual deficits; Z88.2 Allergy status to sulfonamides; Z91.048 Other nonmedicinal substance allergy status; Z88.8 Allergy status to other drugs, medicaments and biological substances; Z79.82 Long term (current) use of aspirin; Z23 Encounter for immunization; Z79.899 Other long term (current) drug therapy; W19.XXXA Unspecified fall, initial encounter
CPT/HCPCS: 70450; 73502; 73560-LT; 90714; A9270

== ENCOUNTER → 2024-05-12 | Outpatient (CLI) | payer MEDICARE, OTHER ==
[~2024-05-12] MED LIST changes: +ALMACONE SUSPE355 ML PO; +Acetaminophen650 M1 PO; +DILT60 PO; +DULCOLAX400 MG/5 M PO; +LEVSOD75 PO; +LOPERAMIDE212 PO; +ONDA4 PO; +POTCHL20ER PO; +Percocet 5-3251 EACH PO; +THERA-D2000 UNIT PO
[2024-05-12 09:51] LABS: Source, Urine Clean Catch
[2024-05-12 10:44] LABS: Appearance, Urine Clear (Clear); Bilirubin, Urine Neg (Neg); Blood, Urine Neg (Neg); Color, Urine Yellow (P-Yellow); Glucose Qualitative, Urine Neg (Neg); Ketones, Urine Neg (Neg); Leukocyte Esterase, Urine Neg (Neg); Nitrite, Urine Neg (Neg); Protein, Urine Neg (Neg); Urobilinogen, Urine NORM (Normal); pH, Urine 6.5 (5.0-8.0)
== END ==
LOC: LAB 08:30 → LAB SHORT 08:30
PROVIDERS: Nurse Practitioner Family
DX: N39.0 Urinary tract infection, site not specified (principal)
CPT/HCPCS: 81003

== ENCOUNTER → 2024-08-07 | Outpatient (CLI) | payer MEDICARE, OTHER ==
[2024-08-07 15:35] LABS: Appearance, Urine Clear (Clear); Bilirubin, Urine Neg (Neg); Blood, Urine Neg (Neg); Color, Urine Yellow (P-Yellow); Glucose Qualitative, Urine Neg (Neg); Ketones, Urine Neg (Neg); Leukocyte Esterase, Urine Neg (Neg); Nitrite, Urine Neg (Neg); Protein, Urine Neg (Neg); Urobilinogen, Urine NORM (Normal)
== END | disposition home or self-care (01) ==
LOC: LAB 13:15 → LAB SHORT 13:15
PROVIDERS: Nurse Practitioner Family
DX: N39.0 Urinary tract infection, site not specified (principal)
CPT/HCPCS: 81003

== ENCOUNTER → 2025-01-13 | Outpatient (CLI) | payer MEDICARE, OTHER ==
[2025-01-13 09:29] LABS: Source, Urine Clean Catch
[2025-01-13 11:24] LABS: Appearance, Urine Hazy (Clear); Bilirubin, Urine Neg (Neg); Blood, Urine Neg (Neg); Color, Urine Yellow (P-Yellow); Glucose Qualitative, Urine Neg (Neg); Ketones, Urine Neg (Neg); Leukocyte Esterase, Urine Neg (Neg); Nitrite, Urine Neg (Neg); Protein, Urine Neg (Neg); Urobilinogen, Urine NORM (Normal)
[2025-01-13 12:09] LABS: Amorphous Light (0-Heavy); Bacteria Not Seen /hpf; Red Blood Cells, Urine 0-2 /hpf (0-2); Squamous Epithelial Cells Many /hpf (Few); Triple Phosphate Crystals Few /hpf; White Blood Cells, Urine 0-2 /hpf (0-5)
== END | disposition home or self-care (01) ==
LOC: LAB 08:55 → LAB SHORT 08:55
PROVIDERS: Nurse Practitioner Family
DX: N39.0 Urinary tract infection, site not specified (principal)
CPT/HCPCS: 81001